=== PATIENT | female | born 1985 | race Caucasian/White ===

== ENCOUNTER 2023-06-04 06:26 | Emergency (ER) | payer OTHER, SELFPAY ==
[2023-06-04 06:30] VITALS: BP 124/82; PULSE 122; RESP 18; TEMP 37.8; O2SAT 96
--- NOTE | 2023-06-04 06:42 | PC.NURSE ---
Patient with cold and flu sx x2 days. Has been taking Nyquil and Tylenol but not improving. She spoke to a nurse with her [employer] who advised that she come to the ER instead of waiting for urgent care to open because she mentioned that her chest was hurting from coughing.
[2023-06-04 06:46] VITALS: O2SAT 96
[2023-06-04] MEDS: ACETAMINOPHEN 325 MG TABLET 650 MG PO (07:08)
[2023-06-04 07:13] LABS: Influenza Virus A Antigen Negative; Influenza Virus B Antigen Positive; Internal Control Within Normal Limits; SARS-CoV-2 Ag NEGATIVE (NEGATIVE)
--- NOTE | 2023-06-04 07:26 | ED_ITS ---
HPI - URI/Sore Throat General Chief Complaint: Upper Respiratory Infection Stated Complaint: chest pain/coughing/chills Time Seen by Provider: 06/04/23 06:59 Source: patient Limitations: no limitations History of Present Illness HPI Narrative: Patient presenting to us with a 3 days history of up respiratory tract infection symptoms of cough and chest pain that happen whenever she take a deep breath or cough. The patient mentioned that she also have sore throat and body ache no nausea or vomiting or diarrhea. No exposure to anybody who had similar symptoms but the patient works as a teacher. Related Data Home Medications Medication Instructions Recorded Confirmed atorvastatin 20 mg tablet 20 mg PO DAILY 06/04/23 06/04/23 dicyclomine 20 mg tablet 20 mg PO BID 06/04/23 06/04/23 omeprazole 20 mg capsule,delayed 20 mg PO DAILY 06/04/23 06/04/23 release Previous Rx's Medication Instructions Recorded oseltamivir 75 mg capsule (Tamiflu) 75 mg PO BID 5 days #10 caps 06/04/23 Allergies Allergy/AdvReac Type Severity Reaction Status Date / Time latex AdvReac Mild Verified 06/04/23 06:35 ibuprofen AdvReac Verified 06/04/23 06:35 naproxen AdvReac Verified 06/04/23 06:35 Review of Systems ROS Status of ROS 10 or more systems reviewed and unremark able except as noted in history and below [facility] Social History Smoking status: Never smoker Exam Narrative Exam Narrative: Nurses notes and vital signs reviewed and patient is not hypoxic. General: Well-appearing and in no apparent distress. Skin: Warm, dry, no pallor noted. No rash. Head: Normocephalic, atraumatic. Neck: Supple, non-tender. Eye: Pupils are equal, round and EOMI. No scleral icterus. Ears, Nose, Mouth, and Throat: TM are clear, congested nasal mucosa, the patient have no dryness of the mucous membrane but she does have some dry lip ,no posterior oropharynx erythema, uvula is mid-line Cardiovascular: Regular Rate and Rhythm without murmur, gallop or rub. Respiratory: No accessory muscle use or respiratory distress. Lungs are clear to auscultation, no wheezing, rales or rhonchi Chest Wall: no tenderness Back: No midline thoracic or lumbar vertebral tenderness. No CVA tenderness Musculoskeletal: normal ROM, no calf or popliteal tenderness, no lower extremity edema/swelling GI: Abdomen is soft, non-distended. Normal bowel sounds. No masses appreciated. No tenderness to palpation. No rebound, guarding, or rigidity noted. Neurological: A&O x4. No cranial nerve dysfunction observed. No truncal ataxia. Moves all extremities. Sensation intact. Psychiatric: Cooperative and interactive. Normal mood and affect. Constitutional Vital Signs, click to edit/add: Last Vital Signs Temp 100.1 F 06/04/23 06:30 Pulse 122 H 06/04/23 06:30 Resp 18 06/04/23 06:30 BP 124/82 06/04/23 06:30 Pulse Ox 96 06/04/23 06:46 O2 Del Method Room Air 06/04/23 06:46 Course Vital Signs Vital signs: Vital Signs Temperature 100.1 F 06/04/23 06:30 Pulse Rate 122 H 06/04/23 06:30 Respiratory Rate 18 06/04/23 06:30 Blood Pressure 124/82 06/04/23 06:30 Pulse Oximetry 96 06/04/23 06:30 Temperature 100.1 F 06/04/23 06:30 Pulse Rate 122 H 06/04/23 06:30 Respiratory Rate 18 06/04/23 06:30 Blood Pressure 124/82 06/04/23 06:30 Pulse Oximetry 96 06/04/23 06:46 Oxygen Delivery Method Room Air 06/04/23 06:46 MDM - URI/Sore Throat MDM Narrative Medical decision making narrative: The patient influenza test is positive for flu A she was started on Tamiflu for the next 5 days She is also to continue supportive care with hydration and rest she also was provided with a 5 days off her work . The patient is to follow up with primary care physician in next 2-3 days or to return to the emergency department should any of the signs or symptoms worsen or new symptoms develop. The patient agrees with the following Diagnosis and Treatment plan and the patient will be discharged home. Lab Data Labs: Lab Results 06/04/23 Range/Units 06:30 Influenza Type A Ag Negative Influenza Type B Ag Positive A SARS-CoV-2 Ag (CV2AG) Negative (NEGATIVE) Discharge Plan Discharge Chief Complaint: Upper Respiratory Infection Clinical Impression: Flu Patient Disposition: Home, Self-Care Time of Disposition Decision: 07:24 Condition: Good Prescriptions / Home Meds: New oseltamivir [Tamiflu] 75 mg capsule 75 mg PO BID 5 Days Qty: 10 0RF No Action omeprazole 20 mg capsule,delayed release(DR/EC) 20 mg PO DAILY dicyclomine 20 mg tablet 20 mg PO BID atorvastatin 20 mg tablet 20 mg PO DAILY Instructions: Influenza (DC) Stand Alone Forms: Portal Instructions Referrals: Physician,Non-Staff, MD [Primary Care Provider] - 1 week
[2023-06-04] MEDS: METHYLPREDNISOLONE SOD SUCC PF 40 MG/ML VIAL IM (07:31)
[2023-06-04 07:35] VITALS: PULSE 110; RESP 16; TEMP 37.1; O2SAT 97
== END 2023-06-04 07:44 | disposition home or self-care (01) ==
PROVIDERS: Emergency Medicine; Emergency Provider Emergency Medicine
DX: J10.1 Influenza due to other identified influenza virus with other respiratory manifestations (principal); Z79.899 Other long term (current) drug therapy; Z20.822 Contact with and (suspected) exposure to COVID-19
CPT/HCPCS: 87798; 87804; 87811; 96374; 99284; J2920